=== PATIENT | female | born 1965 | race African-American/Black ===

== ENCOUNTER → 2020-05-17 15:28 | Outpatient (BNVA) | payer OTHER, SELFPAY | PROVIDERS: Visit Provider Physician Assistant ==

== ENCOUNTER → 2020-05-18 15:24 | Outpatient (BNVA) | payer OTHER, SELFPAY | PROVIDERS: Visit Provider Physician Assistant ==

== ENCOUNTER → 2020-05-19 08:00 | Outpatient (BNVA) | payer OTHER, SELFPAY | PROVIDERS: Visit Provider Surgery ==

== ENCOUNTER 2020-05-22 14:37 | Outpatient (REF) | payer OTHER, SELFPAY ==
--- NOTE | ~2020-05-22 | XR_ITS ---
EXAMINATION: XR CHEST CLINICAL INFORMATION: Morbid obesity. COMPARISON: None TECHNIQUE: 2 views of the chest were obtained. FINDINGS: No significant abnormality is noted involving the heart, lungs, mediastinum, bony thorax or soft tissues. XR/XR chest 2V IMPRESSION: Unremarkable chest examination.
--- NOTE | 2020-05-22 14:52 | ECG_ITS ---
Test Reason : MORBID OBESITY Blood Pressure : / mmHG Vent. Rate : 074 BPM Atrial Rate : 074 BPM P-R Int : 172 ms QRS Dur : 074 ms QT Int : 372 ms P-R-T Axes : 070 013 024 degrees QTc Int : 412 ms Normal sinus rhythm Normal ECG No previous ECGs available Referred By: Umer Tineo Electronically Signed By:KATHY ROYAL MD
[2020-05-22 15:17] LABS: MANUAL DIFF FLAG NO
[2020-05-22 15:21] LABS: Basophils Absolute Auto 0.1 X10*3/uL (0.0-0.2); Basophils Percent Auto 0.7 % (0-2); Eosinophils Absolute Auto 0.5 X10*3/uL (0.0-0.4); Hematocrit 38.8 % (37-47); Hemoglobin 12.2 g/dl (12.0-16.0); Imm Gran Abs Auto 0.06 X10*3/uL (0.00-0.03); Imm Gran Pct Auto 0.6 % (0.0-0.4); Lymphocytes Absolute Auto 1.8 X10*3/uL (1.2-4.9); Lymphocytes Percent Auto 18.9 % (20-40); Mean Corpuscular HGB Conc 31.4 g/dl (31.0-35.0); Mean Corpuscular Hemoglobin 25.3 pg (27.0-33.0); Mean Corpuscular Volume 80.5 fL (80-98); Mean Platelet Volume 11.3 fL (9.4-12.3); Monocytes Absolute Auto 0.8 X10*3/uL (0.1-1.2); Monocytes Percent Auto 8.2 % (2-11); Neutrophils Absolute Auto 6.3 X10*3/uL (2.0-8.3); Neutrophils Percent Auto 66.6 % (45-73); Platelet Count 211 X10*3/uL (160-400); Red Blood Count 4.82 X10*6/uL (4.20-5.50); Red Cell Distribution Width 13.7 % (11.0-16.0); White Blood Count 9.5 X10*3/uL (4.8-10.8)
[2020-05-22 15:30] LABS: Estimated Average Glucose 111 mg/dL; Hemoglobin A1C 114.3549 umol/L; Hemoglobin A1c % 5.5 %
[2020-05-22 15:49] LABS: Alanine Aminotransferase 21 U/L (0-31); Albumin Level 4.3 g/dL (3.5-5.0); Alkaline Phosphatase 98 U/L (39-117); Anion Gap 11 (12-20); Aspartate Amino Transferase 24 U/L (5-31); Bilirubin Total 1.3 mg/dL (0.0-1.0); Blood Urea Nitrogen 16 mg/dL (9-16); C Reactive Protein 0.38 mg/dL (< or = 0.50); Calcium 9.1 mg/dL (8.4-10.2); Carbon Dioxide 29 mmol/L (22-29); Chloride 103 mmol/L (96-108); Cholesterol 220 mg/dL; Estimated Glomerular Filt Rate > 60; Glucose Random 98 mg/dL (60-115); HDL Cholesterol 52 mg/dL; LDL Cholesterol Calculated 147 mg/dl; Potassium 4.1 mmol/L (3.3-5.1); Sodium 139 mmol/L (135-145); Total Protein 7.3 g/dL (6.5-8.0); Triglycerides 106 mg/dL
[2020-05-22 16:11] LABS: Ferritin 17 ng/mL (10-250); TSH reflex Free T4 0.88 uIU/mL (0.32-4.0); Vitamin D 25-OH Total 14.1 ng/mL (>30)
[2020-05-22 16:20] LABS: Folate 10.6 ng/mL (> or = 4.0); Vitamin B12 545 pg/mL (200-900)
[2020-05-23 16:16] LABS: Calcium (PTHI) 9.6 mg/dL (8.6-10.4); PTHI 160 pg/mL (14-64)
[2020-05-23 18:17] LABS: Insulin Level Total 9.4 uIU/mL
[2020-05-24 22:31] LABS: Zinc 68 mcg/dL (60-130)
[2020-05-25 16:27] LABS: Vitamin B1 17 nmol/L (8-30)
[2020-05-25 21:11] LABS: Vitamin A 48 mcg/dL (38-98)
== END 2020-05-22 14:38 | disposition home or self-care (01) ==
LOC: HO.LAB 14:37
PROVIDERS: Visit Provider Surgery
DX: E66.01 Morbid (severe) obesity due to excess calories (principal); I10 Essential (primary) hypertension; J45.909 Unspecified asthma, uncomplicated
CPT/HCPCS: 36415; 71046; 80053; 80061; 82306; 82607; 82728; 82746; 83036; 83525; 83970; 84425; 84443; 84590; 84630; 85025; 86140; 93005

== ENCOUNTER → 2020-06-14 08:13 | Outpatient (BNVA) | payer OTHER, SELFPAY | PROVIDERS: PCP Internal Medicine; Visit Provider Surgery ==

== ENCOUNTER → 2020-06-21 08:07 | Outpatient (BNVA) | payer OTHER, SELFPAY | PROVIDERS: PCP Internal Medicine; Visit Provider Dietitian, Registered | DX: E66.01 Morbid (severe) obesity due to excess calories (principal) | CPT/HCPCS: 97802 ==

== ENCOUNTER 2020-06-27 11:12 | Day surgery (SDC) | payer OTHER, SELFPAY ==
[2020-06-20 12:03] VITALS: BMI 47.2
--- NOTE | 2020-06-22 14:40 | P.CONAN_ITS ---
Documented by User: Franny Liz 06/22/20 14:41 HPI - Anesthesia Eval Consult details Narrative: 54yo F for Upper Endoscopy s/p gastric bypass PMFSH Active Problems Active Problems: All Active Problems (Updated 06/07/20 @ 13:45 by Stephanie Ross [facility]) Adjustment disorder, unspecified (Acute) Hypertension (Acute) Back pain (Acute) Asthma (Acute) Eczema (Acute) Multiple sclerosis (Acute) Morbid obesity (Acute) Past Medical History Medical History Asthma Eczema Morbid obesity Multiple sclerosis Surgical History Surgical History S/P gastric bypass Social History Social History Alcohol intake: never Smoking Status: Former smoker Advance Directives Information Provided: No Meds Allergies Allergy/AdvReac Type Severity Reaction Status Date / Time No Known Allergies Allergy Verified 05/19/20 14:24 Home Medications Medication Instructions Recorded Confirmed Last Taken Type albuterol sulfate 90 mcg/actuation 2 inh INHALATION Q4H PRN 05/18/20 06/20/20 Unknown History aerosol inhaler crisaborole 2 % topical ointment TOPICAL BID 05/18/20 Unknown History dupilumab 300 mg/2 mL subcutaneous 300 mg SUBCUT Q2W 05/18/20 06/20/20 Unknown History pen injector ergocalciferol (vitamin D2) 1,250 1,250 mcg PO QWEEK 05/18/20 06/20/20 Unknown History mcg (50,000 unit) capsule tacrolimus 0.1 % topical ointment TOPICAL BID 05/18/20 Unknown History triamcinolone acetonide 0.1 % appl TOPICAL 05/18/20 Unknown History topical cream triamcinolone acetonide 0.1 % TOPICAL 05/18/20 Unknown History topical ointment cetirizine 10 mg PO DAILY 06/20/20 06/20/20 Unknown History Exam Exam Date and Time: June 22, 2020 1440 Height,Weight and Vital Signs: Height 5 ft 1 in Weight 113.455 kg Narrative Narrative: EKG 05/2020 Vent. Rate : 074 BPM Atrial Rate : 074 BPM P-R Int : 172 ms QRS Dur : 074 ms QT Int : 372 ms P-R-T Axes : 070 013 024 degrees QTc Int : 412 ms Normal sinus rhythm Normal ECG No previous ECGs available Assessment and Plan Assessment Anesthesia Assessment: Chart Reviewed Documented by User: Ephraim Domínguez 06/27/20 12:32 REPLACED BY [facility] Past Medical History Medical History Asthma Eczema Morbid obesity Multiple sclerosis Surgical History Surgical History S/P gastric bypass Social History Social History Alcohol intake: never Smoking Status: Former smoker Advance Directives Information Provided: No Meds Allergies Allergy/AdvReac Type Severity Reaction Status Date / Time No Known Allergies Allergy Verified 05/19/20 14:24 Home Medications Medication Instructions Recorded Confirmed Last Taken Type albuterol sulfate 90 mcg/actuation 2 inh INHALATION Q4H PRN 05/18/20 06/20/20 Unknown History aerosol inhaler crisaborole 2 % topical ointment TOPICAL BID 05/18/20 Unknown History dupilumab 300 mg/2 mL subcutaneous 300 mg SUBCUT Q2W 05/18/20 06/20/20 Unknown History pen injector ergocalciferol (vitamin D2) 1,250 1,250 mcg PO QWEEK 05/18/20 06/20/20 Unknown History mcg (50,000 unit) capsule tacrolimus 0.1 % topical ointment TOPICAL BID 05/18/20 Unknown History triamcinolone acetonide 0.1 % appl TOPICAL 05/18/20 Unknown History topical cream triamcinolone acetonide 0.1 % TOPICAL 05/18/20 Unknown History topical ointment cetirizine 10 mg PO DAILY 06/20/20 06/20/20 Unknown History Exam Airway Mallampati Class: II TM Dist: >3cm Neck ROM: Full
--- NOTE | 2020-06-26 22:39 | MHC.SHP ---
Pre-Procedural Eval Section A The patient is an INPATIENT: No The History & Physical has been completed within 30 days and I have reviewed it.: Yes Section B Chief Complaint: reflux Details of Present Illness: GERD Relevant Family History (Specify if Yes): No Relevant Social History: None Present Medications: see Short Stay Collaborative assessment Medical History: No relevant PMH History of Previous Operations: Relevant previous surgery/procedure and date(s) (gastric bypass) Allergies: Allergies Allergy/AdvReac Type Severity Reaction Status Date / Time No Known Allergies Allergy Verified 05/19/20 14:24 Review of Systems Sugical H&P ROS: Negative: Constitution, Cardiovascular, Respiratory, Neurological, Psychiatric, Hem-Onc, Allergic/Immunologic, Gastrointestinal, Genitourinary, Musculoskeletal, Integumentary, Endocrine and Eyes/Ears/Nose/Throat Exam Surgical H&P Exam: Normal: HEENT, Normal: Heart, Normal: Lungs, Normal: Extremities, Normal: Abdomen, Normal: Skin and Normal: Neurological Plan Diagnosis/Plan: Unchanged (EGD to assess GERD and gastric bypass anatomy) I have reviewed the history and physical and performed a pertinent physical examination on my patient. No changes have occurred unless specified.
--- NOTE | 2020-06-27 12:11 | P.BOP_ITS ---
Brief Operative Note Date of Service: 06/27/20 Pre-op diagnosis: GERD Post-op diagnosis: same (1) Hiatal hernia, 2) large pouch with retained fundus, 3) candy cane Cesario limb) Procedure: PROCEDURE DATE: 06/27/2020 PREOPERATIVE DIAGNOSIS: GERD, s/p gastric bypass POSTOPERATIVE DIAGNOSIS: Same as above. 1) Redundant gastric pouch, 2) Candy cane gastro-jejunostomy, 3) 3cm hiatal hernia PROCEDURE: [id number] with biopsies Surgeon: Isaiah Tineo M.D.. Ph.D. Medical Program Specialist: None Anesthesia: IV sedation Estimated blood loss: Minimal FINDINGS AND PROCEDURE: OPERATIVE INDICATIONS: The patient is a 54 year old female known to me who underwent a laparoscopic gastric bypass elsewhere. The patient had inadequate weight loss so far and has GERD. Based on this information I recommended an upper endoscopy to evaluate the patient's symptoms. Risks and complications of the surgery were discussed with the patient in advance particularly the possibility of perforation or bleeding that may require surgical intervention. The patient understood the risks and was in agreement with the plan. PROCEDURE: After informed consent was obtained by the patient, the patient was transferred to the Operating Room and was placed in the supine position. After successful induction of IV sedation, a mouth block was placed and the patient was placed in the left lateral decubitus position. An upper endoscopy was performed next, the oropharynx and esophagus appeared within the normal limits. There was 1 3cm hiatal hernia (z-line at 35cm, GEJ at 38cm). The z-line was smooth. Two biopsies were obtained from the distal esophagus 2-3 cm proximal to the GE junction and two biopsies from the GE junction. The gastric pouch was entered, appeared to be large (z-line at 35cm and GJ anastomosis at 39cm). There was no gastritis and the gastrojejunostomy was patent. A biopsy was obtained from the gastric pouch. No significant bleeding was noted from any of the biopsy sites. There was no anastomotic ulcer. At that point the scope was advanced into the proximal small intestine (proximal Cesario limb) which appeared to be normal. The blind end of the Cesario limb was elongated about 5-6cm long ( candy cane anatomy). The Cesario limb and the pouch were decompressed and the scope was withdrawn from the patient's mouth. The patient was awaken and was transferred in stable condition to the Recovery Room for further care. I was present and performed all steps of the procedure. There were no residents to assist with this case. Isaiah Tineo M.D., Ph.D. Surgeon: Umer Tineo MD Anesthesia: MAC Estimated blood loss (mL): 0 IV fluids (mL): 500 Urine output (mL): 0 (No Haas to record) Pathology: other (1) GEJ x2, 2) distal esophagus x2, 3) gastric pouch x1) Condition: stable Disposition: PACU
[2020-06-27 12:15] VITALS: BP 129/82; PULSE 70; RESP 16; TEMP 36.4; O2SAT 97
[2020-06-27 12:27] LABS: COVID-19 Test Negative (Negative); IDNOW Serial# 9DD0AD1C
[2020-06-27] MEDS: Lactated Ringers 1,000 ML 100 ML IVCONT (12:41)
[2020-06-27 13:46] VITALS: BP 135/84; PULSE 79; RESP 14; TEMP 36.2; O2SAT 99
[2020-06-27 14:01] VITALS: BP 139/88; PULSE 72; RESP 18; O2SAT 99
== END 2020-06-27 14:24 ==
LOC: HO.SSS 11:12
PROVIDERS: PCP Internal Medicine; Visit Provider Surgery
PROC: 0DJ08ZZ Inspection of Upper Intestinal Tract, Via Natural or Artificial Opening Endoscopic (ICD-10-PCS; CPT 43235; principal; 2020-06-27 12:10)
DX: K21.9 Gastro-esophageal reflux disease without esophagitis (principal); K91.1 Postgastric surgery syndromes; Z98.84 Bariatric surgery status; E66.01 Morbid (severe) obesity due to excess calories; Z68.42 Body mass index [BMI] 45.0-49.9, adult; G35 Multiple sclerosis; J45.909 Unspecified asthma, uncomplicated; K44.9 Diaphragmatic hernia without obstruction or gangrene; Z79.899 Other long term (current) drug therapy; Z87.891 Personal history of nicotine dependence
CPT/HCPCS: 43239; 36415; 87635; 88305; 88342

== ENCOUNTER → 2020-07-10 08:23 | Outpatient (BNVA) | payer OTHER, SELFPAY | PROVIDERS: PCP Internal Medicine; Visit Provider Surgery ==

== ENCOUNTER 2020-07-19 10:02 | Outpatient (REF) | payer OTHER, SELFPAY ==
--- NOTE | ~2020-07-19 | FL_ITS ---
EXAMINATION: XR GI SERIES CLINICAL INFORMATION: Moderate/severe obesity due to excess calories. COMPARISON: None TECHNIQUE: Routine upper GI air contrast study was performed. FINDINGS: Following oral administration of thick barium and effervescent granules there is normal propagation of bolus from the oral cavity through the pharynx, esophagus into stomach without any evidence of obstruction, narrowing or stricture. There are previous surgical changes of gastric bypass with prompt passage of barium from the stomach into the duodenum without any evidence of obstruction. There is a large gastroesophageal reflux without hiatal hernia. FLUOROSCOPY TIME: 1.0 minutes DOSE AREA PRODUCT: 31.961 uGy-m2 (microgray-meter squared) FL/FL upper GI series IMPRESSION: Evidence of previous gastric bypass surgery with widely patent GE junction and gastrojejunal anastomosis. There is a large gastroesophageal reflux without hiatal hernia.
--- NOTE | ~2020-07-19 | US_ITS ---
EXAMINATION: US COMPLETE ABDOMEN WITH LIVER ELASTOGRAPHY CLINICAL INFORMATION: Obesity COMPARISON: None. TECHNIQUE: Real-time imaging of the abdominal viscera. Noninvasive ultrasound liver fibrosis assessment is performed using Delma ElastPQ point quantification shear wave elastography (pSWE) with a C5-2 MHz transducer. Multiple elastography samples are obtained. FINDINGS: PANCREAS: Normal. ABDOMINAL AORTA: The proximal, middle, and distal aortic segments are normal in caliber. INFERIOR VENA CAVA: Visualized portions are normal. LIVER: Normal. The liver demonstrates normal size, contour and echogenicity. No focal lesion or intrahepatic biliary duct dilatation. The right lobe measures 14.5 cm in length. The left lobe measures 9.2 cm in length. Portal flow is normal/hepatopedal Shear wave liver elastography median stiffness is 1.24 m/s (reference: normal median stiffness is 1.3 m/s or less). IQR/median stiffness to assess sampling precision is 0.2 (reference: good quality data set is IQR/median stiffness of 0.15 or less). GALLBLADDER: Normal. The gallbladder is physiologically distended without evidence of stones, sludge, polyps, wall thickening or pericholecystic fluid. COMMON BILE DUCT: Normal in caliber measuring 0.5 cm in diameter. RIGHT KIDNEY: Normal. No hydronephrosis. No renal calculi or focal parenchymal lesions. The kidney measures 11 cm in maximum dimension. LEFT KIDNEY: Normal. No hydronephrosis. No renal calculi or focal parenchymal lesions. The kidney measures 11.7 cm in maximum dimension. SPLEEN: Normal. The spleen measures 9.7 cm in maximum dimension. FREE FLUID: None. US/US abdomen comp w elastography IMPRESSION: 1. Impression: Unremarkable exam. 2. Liver elastography: Normal. Adequate sampling. REFERENCE: Society of Radiologists in Ultrasound Liver Stiffness Thresholds (2020): LIVER STIFFNESS THRESHOLDS: *Liver Stiffness equal or less than 1.3 m/s: High probability of being normal. *Liver Stiffness less than 1.7 m/s: In the absence of other known clinical signs, rules out compensated advanced chronic liver disease. *Liver Stiffness 1.7-2.1 m/s: Suggestive of compensated advanced chronic liver disease but need further test for confirmation. *Liver Stiffness over 2.1 m/s: Rules in compensated advanced chronic liver disease. *Liver Stiffness over 2.4 m/s: Suggestive of clinically significant portal hypertension. QUALITY OF DATA SET: *IQR/Median value equal or less than 0.15 implies a quality data set. *IQR/Median value over 0.15 implies a poor quality data set. SIGNIFICANT CHANGE FROM PRIOR EXAM: Significant change if liver stiffness measurement is 10% or greater from prior exam. OTHER CONSIDERATIONS: The stage of liver fibrosis may be overestimated in the setting of acute hepatitis, liver inflammation, elevated liver function tests, hepatic vascular congestion, obstructive cholestasis, non-fasting state, and infiltrative diseases such as amyloidosis and lymphoma. In some patients with NAFLD, the liver stiffness thresholds for compensated advanced chronic liver disease may be lower. In causes other than viral hepatitis and NAFLD, liver stiffness thresholds are not well established.
== END 2020-07-19 10:03 | disposition home or self-care (01) ==
LOC: HO.US 10:02
PROVIDERS: Visit Provider Surgery
DX: Z01.818 Encounter for other preprocedural examination (principal); E66.01 Morbid (severe) obesity due to excess calories; K21.9 Gastro-esophageal reflux disease without esophagitis; I10 Essential (primary) hypertension; J45.909 Unspecified asthma, uncomplicated
CPT/HCPCS: 74240; 76705; 76981

== ENCOUNTER → 2020-08-02 08:16 | Outpatient (BNVA) | payer OTHER, SELFPAY | PROVIDERS: PCP Internal Medicine; Visit Provider Surgery ==

== ENCOUNTER → 2020-08-21 07:41 | Outpatient (BNVA) | payer OTHER, SELFPAY | PROVIDERS: PCP Internal Medicine; Visit Provider Surgery ==

== ENCOUNTER → 2020-09-18 07:08 | Outpatient (BNVA) | payer OTHER, SELFPAY | PROVIDERS: PCP Internal Medicine; Visit Provider Surgery ==

== ENCOUNTER 2020-09-25 19:22 | Inpatient (IN) | payer OTHER, SELFPAY ==
[2020-09-13 12:31] VITALS: BMI 43.6
--- NOTE | 2020-09-15 15:12 | P.CONAN_ITS ---
Documented by User: Franny Chatmanney 09/25/20 08:24 HPI - Anesthesia Eval Consult details Narrative: 54yo F for Revision of Gastric Bypass to Gastric Sleeve s/p gastric bypass 2010 Recent MS diagnosis. Awaiting insurance auth for rx. PMFSH Active Problems Active Problems: All Active Problems (Updated 09/13/20 @ 12:27 by Lindsay Dorado) Back pain (Acute) Hypertension (Acute) Adjustment disorder, unspecified (Acute) Asthma (Acute) Eczema (Acute) Multiple sclerosis (Acute) Morbid obesity (Acute) Past Medical History Medical History Asthma Back pain Eczema Hypertension Morbid obesity Multiple sclerosis Surgical History Surgical History H/O tubal ligation History of esophagogastroduodenoscopy (EGD) Hx of dilation and curettage S/P gastric bypass Social History Social History Are you a primary child care nurse to a significant other at home: Yes (9 year old daughter) Do you presently have visiting nurse or other home services: No Alcohol intake: never Patient Tobacco Use Status: Former Tobacco user Quit Date: 2007 Tobacco use type: Cigarette Use of substances other than those prescribed or required for medical reasons: No Have you been hit, kicked, punched, or otherwise hurt by someone within the past year? If so, by whom?: No Are you DNR?: No Advance Directives: No Advance Directives Information Provided: No Advance Directives on File: No Recently lost weight without trying: No Patient : No FDLMP: 2009 Meds Allergies Allergy/AdvReac Type Severity Reaction Status Date / Time No Known Allergies Allergy Verified 09/26/20 06:14 Home Medications Medication Instructions Recorded Confirmed Last Taken Type albuterol sulfate 90 mcg/actuation 2 inh INHALATION Q4H PRN 05/18/20 06/20/20 Unknown History aerosol inhaler crisaborole 2 % topical ointment TOPICAL BID 05/18/20 Unknown History dupilumab 300 mg/2 mL subcutaneous 300 mg SUBCUT Q2W 05/18/20 06/20/20 Unknown History pen injector tacrolimus 0.1 % topical ointment TOPICAL BID 05/18/20 Unknown History triamcinolone acetonide 0.1 % appl TOPICAL 05/18/20 Unknown History topical cream triamcinolone acetonide 0.1 % TOPICAL 05/18/20 Unknown History topical ointment Exam Exam Date and Time: September 15, 2020 151 Height,Weight and Vital Signs: Height 5 ft 1 in Weight 104.78 kg Pertinent Lab Results Pertinent Lab Results: Lab Results 09/21/20 09/21/20 09/21/20 Range/Units 11:39 11:39 11:39 WBC 6.9 (4.8-10.8) X10*3/uL RBC 4.71 (4.20-5.50) X10*6/uL Hgb 11.7 L (12.0-16.0) g/dl Hct 36.8 L (37-47) % MCV 78.1 L (80-98) fL MCH 24.8 L (27.0-33.0) pg MCHC 31.8 (31.0-35.0) g/dl RDW 15.8 (11.0-16.0) % Plt Count 197 (160-400) X10*3/uL MPV 11.5 (9.4-12.3) fL Immature Gran % (Auto) 0.3 (0.0-0.4) % Neut % (Auto) 61.8 (45-73) % Lymph % (Auto) 22.7 (20-40) % [place] % (Auto) 8.4 (2-11) % Eos % (Auto) 5.8 H (0-4) % Baso % (Auto) 1.0 (0-2) % Lymph # (Auto) 1.6 (1.2-4.9) X10*3/uL [place] # (Auto) 0.6 (0.1-1.2) X10*3/uL Eos # (Auto) 0.4 (0.0-0.4) X10*3/uL Baso # (Auto) 0.1 (0.0-0.2) X10*3/uL Abs Immat Gran (auto) 0.02 (0.00-0.03) X10*3/uL Absolute Neuts (auto) 4.3 (2.0-8.3) X10*3/uL Absolute Nucleated RBC 0.000 (0.0-0.012) X10*3/uL Nucleated RBC % (auto) 0.0 (0.0-0.2) /100WBC PT 12.0 (9.9-13.0) SEC INR 1.1 (0.9-1.1) APTT 44.3 H (24.1-38.0) SEC Sodium 140 (135-145) mmol/L Potassium 4.4 (3.3-5.1) mmol/L Chloride 107 (96-108) mmol/L Carbon Dioxide 26 (22-29) mmol/L Anion Gap 11 L (12-20) BUN 15 (9-16) mg/dL Creatinine 0.79 (0.5-1.4) mg/dL Estim Creat Clear Calc 92.8 Estimated GFR > 60 Random Glucose 95 (60-115) mg/dL Estimat Average Glucose mg/dL Hemoglobin A1c % % Total Insulin uIU/mL Calcium 9.5 (8.4-10.2) mg/dL Total Bilirubin 1.0 (0.0-1.0) mg/dL AST 28 (5-31) U/L ALT 23 (0-31) U/L Alkaline Phosphatase 92 (39-117) U/L C-Reactive Protein 0.15 (< or = 0.50) mg/dL Total Protein 7.0 (6.5-8.0) g/dL Albumin 4.0 (3.5-5.0) g/dL Triglycerides 71 mg/dL Cholesterol 189 mg/dL LDL Cholesterol, Calc 128 mg/dl HDL Cholesterol 47 mg/dL TSH 0.49 (0.32-4.0) uIU/mL Blood Type Antibody Screen 09/21/20 09/21/20 09/21/20 Range/Units 11:39 11:39 11:39 WBC (4.8-10.8) X10*3/uL RBC (4.20-5.50) X10*6/uL Hgb (12.0-16.0) g/dl Hct (37-47) % MCV (80-98) fL MCH (27.0-33.0) pg MCHC (31.0-35.0) g/dl RDW (11.0-16.0) % Plt Count (160-400) X10*3/uL MPV (9.4-12.3) fL Immature Gran % (Auto) (0.0-0.4) % Neut % (Auto) (45-73) % Lymph % (Auto) (20-40) % [place] % (Auto) (2-11) % Eos % (Auto) (0-4) % Baso % (Auto) (0-2) % Lymph # (Auto) (1.2-4.9) X10*3/uL [place] # (Auto) (0.1-1.2) X10*3/uL Eos # (Auto) (0.0-0.4) X10*3/uL Baso # (Auto) (0.0-0.2) X10*3/uL Abs Immat Gran (auto) (0.00-0.03) X10*3/uL Absolute Neuts (auto) (2.0-8.3) X10*3/uL Absolute Nucleated RBC (0.0-0.012) X10*3/uL Nucleated RBC % (auto) (0.0-0.2) /100WBC PT (9.9-13.0) SEC INR (0.9-1.1) APTT (24.1-38.0) SEC Sodium (135-145) mmol/L Potassium (3.3-5.1) mmol/L Chloride (96-108) mmol/L Carbon Dioxide (22-29) mmol/L Anion Gap (12-20) BUN (9-16) mg/dL Creatinine (0.5-1.4) mg/dL Estim Creat Clear Calc Estimated GFR Random Glucose (60-115) mg/dL Estimat Average Glucose 108 mg/dL Hemoglobin A1c % 5.4 % Total Insulin 5.8 uIU/mL Calcium (8.4-10.2) mg/dL Total Bilirubin (0.0-1.0) mg/dL AST (5-31) U/L ALT (0-31) U/L Alkaline Phosphatase (39-117) U/L C-Reactive Protein (< or = 0.50) mg/dL Total Protein (6.5-8.0) g/dL Albumin (3.5-5.0) g/dL Triglycerides mg/dL Cholesterol mg/dL LDL Cholesterol, Calc mg/dl HDL Cholesterol mg/dL TSH (0.32-4.0) uIU/mL Blood Type O Positive Antibody Screen NEGATIVE Narrative Narrative: EKG 05/2020 Vent. Rate : 074 BPM Atrial Rate : 074 BPM P-R Int : 172 ms QRS Dur : 074 ms QT Int : 372 ms P-R-T Axes : 070 013 024 degrees QTc Int : 412 ms Normal sinus rhythm Normal ECG No previous ECGs available Assessment and Plan Assessment Anesthesia Assessment: Chart Reviewed Documented by User: Kasi Neumann 09/26/20 06:52 [facility] Past Medical History Medical History Asthma Back pain Eczema Hypertension Morbid obesity Multiple sclerosis Surgical History Surgical History H/O tubal ligation History of esophagogastroduodenoscopy (EGD) Hx of dilation and curettage S/P gastric bypass Social History Social History Are you a primary child care nurse to a significant other at home: Yes (9 year old daughter) Do you presently have visiting nurse or other home services: No Alcohol intake: never Patient Tobacco Use Status: Former Tobacco user Quit Date: 2007 Tobacco use type: Cigarette Use of substances other than those prescribed or required for medical reasons: No Have you been hit, kicked, punched, or otherwise hurt by someone within the past year? If so, by whom?: No Are you DNR?: No Advance Directives: No Advance Directives Information Provided: No Advance Directives on File: No Recently lost weight without trying: No Patient : No FDLMP: 2009 Meds Allergies Allergy/AdvReac Type Severity Reaction Status Date / Time No Known Allergies Allergy Verified 09/26/20 06:14 Home Medications Medication Instructions Recorded Confirmed Last Taken Type albuterol sulfate 90 mcg/actuation 2 inh INHALATION Q4H PRN 05/18/20 06/20/20 U nknown History aerosol inhaler crisaborole 2 % topical ointment TOPICAL BID 05/18/20 Unknown History dupilumab 300 mg/2 mL subcutaneous 300 mg SUBCUT Q2W 05/18/20 06/20/20 Unknown History pen injector tacrolimus 0.1 % topical ointment TOPICAL BID 05/18/20 Unknown History triamcinolone acetonide 0.1 % appl TOPICAL 05/18/20 Unknown History topical cream triamcinolone acetonide 0.1 % TOPICAL 05/18/20 Unknown History topical ointment Exam Airway Mallampati Class: III TM Dist: >3cm Neck ROM: Full Loose/Missing/Broken Teeth: No Heart: [id number] Lungs: cta b/l Assessment and Plan Assessment Anesthesia Assessment: Anesthesia Plan Discussed, PAT Visit and Chart Reviewed Final Anesthetic Review NPO: Yes ASA Class: III Final Preanesthetic Review: No Changes in Pt Med Stat, Meds/Allgs Chart Reviewed, Consent Obtained/Reviewed and Anes Risks/Benef Reviewed Patient Risk: Intermediate Procedure Risk: Low Assessment/Block/Sedation in SS: Assess/Block/Sedation-SS Anesthetic Plan Anesthetic Plan: GA and Agree w/ Assess. and Plan Disposition: Standard PACU
[2020-09-21 12:01] LABS: MANUAL DIFF FLAG NO
[2020-09-21 12:10] LABS: Basophils Absolute Auto 0.1 X10*3/uL (0.0-0.2); Eosinophils Absolute Auto 0.4 X10*3/uL (0.0-0.4); Eosinophils Percent Auto 5.8 % (0-4); Hematocrit 36.8 % (37-47); Hemoglobin 11.7 g/dl (12.0-16.0); Imm Gran Abs Auto 0.02 X10*3/uL (0.00-0.03); Imm Gran Pct Auto 0.3 % (0.0-0.4); Lymphocytes Absolute Auto 1.6 X10*3/uL (1.2-4.9); Lymphocytes Percent Auto 22.7 % (20-40); Mean Corpuscular HGB Conc 31.8 g/dl (31.0-35.0); Mean Corpuscular Hemoglobin 24.8 pg (27.0-33.0); Mean Corpuscular Volume 78.1 fL (80-98); Mean Platelet Volume 11.5 fL (9.4-12.3); Monocytes Absolute Auto 0.6 X10*3/uL (0.1-1.2); Monocytes Percent Auto 8.4 % (2-11); Neutrophils Absolute Auto 4.3 X10*3/uL (2.0-8.3); Neutrophils Percent Auto 61.8 % (45-73); Platelet Count 197 X10*3/uL (160-400); Red Blood Count 4.71 X10*6/uL (4.20-5.50); Red Cell Distribution Width 15.8 % (11.0-16.0); White Blood Count 6.9 X10*3/uL (4.8-10.8)
[2020-09-21 12:13] LABS: INTERNATIONAL NORM RATIO 1.1 (0.9-1.1)
[2020-09-21 12:15] LABS: Partial Thromboplastin Time 44.3 SEC (24.1-38.0)
[2020-09-21 12:17] LABS: Estimated Average Glucose 108 mg/dL; Hemoglobin A1c % 5.4 %
[2020-09-21 12:39] LABS: Alanine Aminotransferase 23 U/L (0-31); Alkaline Phosphatase 92 U/L (39-117); Anion Gap 11 (12-20); Aspartate Amino Transferase 28 U/L (5-31); Blood Urea Nitrogen 15 mg/dL (9-16); C Reactive Protein 0.15 mg/dL (< or = 0.50); Calcium 9.5 mg/dL (8.4-10.2); Carbon Dioxide 26 mmol/L (22-29); Chloride 107 mmol/L (96-108); Cholesterol 189 mg/dL; Creatinine Clr Calc Pharmacy 92.8; Estimated Glomerular Filt Rate > 60; Glucose Random 95 mg/dL (60-115); HDL Cholesterol 47 mg/dL; LDL Cholesterol Calculated 128 mg/dl; Potassium 4.4 mmol/L (3.3-5.1); Sodium 140 mmol/L (135-145); Triglycerides 71 mg/dL
[2020-09-21 13:00] LABS: TSH reflex Free T4 0.49 uIU/mL (0.32-4.0)
[2020-09-22 20:36] LABS: Insulin Level Total 5.8 uIU/mL
--- NOTE | 2020-09-25 19:19 | MHC.SHP ---
Pre-Procedural Eval Section A Date of Service: 09/25/20 The patient is an INPATIENT: Yes The History & Physical has been completed within 30 days and I have reviewed it.: Yes Section B Chief Complaint: Morbid Severe Obesity Details of Present Illness: Obesity Relevant Family History (Specify if Yes): No Relevant Social History: None Present Medications: see Short Stay Collaborative assessment Medical History: No relevant PMH History of Previous Operations: Relevant previous surgery/procedure and date(s) (Lap gastric bypass) Allergies: Allergies Allergy/AdvReac Type Severity Reaction Status Date / Time No Known Allergies Allergy Verified 09/18/20 12:08 Review of Systems Sugical H&P ROS: Negative: Constitution, Cardiovascular, Respiratory, Neurological, Psychiatric, Hem-Onc, Allergic/Immunologic, Gastrointestinal, Genitourinary, Musculoskeletal, Integumentary, Endocrine and Eyes/Ears/Nose/Throat Exam Surgical H&P Exam: Normal: HEENT, Normal: Heart, Normal: Lungs, Normal: Extremities, Normal: Abdomen, Normal: Skin and Normal: Neurological Plan Diagnosis/Plan: Unchanged I have reviewed the history and physical and performed a pertinent physical examination on my patient. No changes have occurred unless specified.
[2020-09-26] VITALS (14 sets, daily range): BP systolic 122–143; BP diastolic 60–81; PULSE 76–89; RESP 14–20; TEMP 36.1–36.6; O2SAT 98–100
[2020-09-26] MEDS: Lactated Ringers 1,000 ML 100 ML IVCONT (06:58)
[2020-09-26 07:01] LABS: COVID-19 Test Negative (Negative); IDNOW Serial# 08D9AD1C
--- NOTE | 2020-09-26 07:28 | PC.NURSE ---
consent reviewed with Kelsy Gordon acceptable date and time frame
--- NOTE | 2020-09-26 09:57 | P.DS_ITS ---
DS: Providers Provider Date of Service: 09/27/20 Date of admission: 09/25/20 19:22 Primary care physician: Richard Gurrola MD DS: Medications Discharge Medications Home Medications: Home Medications Medication Instructions Recorded Confirmed albuterol sulfate 90 mcg/actuation 2 inh INHALATION Q4H PRN 05/18/20 06/20/20 aerosol inhaler crisaborole 2 % topical ointment TOPICAL BID 05/18/20 dupilumab 300 mg/2 mL subcutaneous 300 mg SUBCUT Q2W 05/18/20 06/20/20 pen injector tacrolimus 0.1 % topical ointment TOPICAL BID 05/18/20 triamcinolone acetonide 0.1 % appl TOPICAL 05/18/20 topical cream triamcinolone acetonide 0.1 % TOPICAL 05/18/20 topical ointment Previous Rx's Medication Instructions Recorded ondansetron HCl 4 mg tablet 4 mg PO Q12H #20 tab 09/18/20 pantoprazole 40 mg tablet,delayed 40 mg PO DAILY #30 tab 09/18/20 release polyethylene glycol 3350 17 gram 17 g PO DAILY #14 ea 09/18/20 oral powder packet sucralfate 100 mg/mL oral 10 ml PO BID #400 ml 09/18/20 suspension ondansetron HCl 4 mg tablet 4 mg PO DAILY #14 tab 09/21/20 DS: Summary Time Spent with Patient Time attestation: ADMITTING DIAGNOSIS: morbid obesity, s/p gastric bypass, diaphragmatic hernia, asthma, multiple sclerosis DISCHARGE DIAGNOSIS: same, s/p laparoscopic revision of gastric bypass - sleeve gastrectomy and repair diaphragmatic hernia PAST SURGICAL HISTORY: gastric bypass, tubal ligation PROCEDURE: upper endoscopy, laparoscopic sleeve gastrectomy and repair of diaphragmatic hernia hernia DISCHARGE SUMMARY: History of Present Illness: The patient is a 54 year-old woman with a BMI of 48.2 kg/m2 and associated co- morbidities as described above. The patient had extensive work-up,lost 24.8 lbs preoperatively and was electively scheduled for laparoscopic, possible open sleeve gastrectomy and gastropexy. Risks and complications of the surgery were discussed with the patient in advance, particularly the possibility of , pulmonary embolism, anastomotic leak, bleeding, bowel injury, GERD, cardiac, renal or pulmonary complications. The patient understood all the risks and was in agreement with the surgical plan. Hospital Course: The patient underwent an uneventful laparoscopic sleeve gastrectomy (revision of gastric bypass) and repair of diaphragmatic hernia on the day of admission. Postoperatively, the patient was transferred to the surgical floor. The patient was on IV Acetaminophen and IV dilaudid for pain control. Patient was started on bariatric phase 1 diet POD #0. On postoperative day one, the patient was feeling well without nausea, vomiting, fevers, or tachycardia. The patient had some mild incisional pain. The abdomen was soft. On the morning of postoperative day one, the patient was continued on 1 ounce of water or ice every half hour. During the first day, the patient did fairly well, having some incisional pain, but able to ambulate adequately and to tolerate liquids well. Since the patient is doing well, we decided that the patient was ready to be discharged. The patient was given instructions to follow-up with me next week and to call my office for any fever over 101, persistent abdominal pain, nausea, vomiting, GERD, symptoms of DVT such as calf tenderness, or leg swelling, or pulmonary embolism such as chest pain or shortness of breath. The patient was also instructed to drink 40-60 ounces of liquids per day using the 1-ounce cups. The patient was given prescription for Tylenol for pain, Zofran prn for nausea, and pantoprazole and carafate. The patient was encouraged to ambulate and use the incentive spirometer. The patient was allowed to shower, but no baths, and encouraged to stay active at home. All of these instructions were given to the patient personally. All questions were answered and the patient understood all instructions, the instructions were also given to the patient in print. Total time spent providing and/or coordinating discharge services: 15 Discharge coordination time: Less than 30 minutes Quality: Stroke Does the patient have a stroke diagnosis?: No Physical Exam Vital Signs: Vital Signs: Last Vital Signs Temp 96.9 F 09/26/20 06:46 Pulse 77 09/26/20 06:46 Resp 20 09/26/20 06:46 BP 135/78 09/26/20 06:46 Pulse Ox 99 09/26/20 06:46 Body Mass Index 43.6 DS: Data Data Completed and Pending Pending studies at discharge: Pending at discharge 09/26/20 09:23 Surgical [PTH] Routine Labs on day of discharge: Laboratory Results - last 24 hr 09/26/20 06:21 COVID-19 (EREN) Negative COVID-19 Clin Com See Note Discharge Plan Discharge Anticipated Discharge Date/Time: 09/27/20 10:53 Patient Disposition: Home, Self-Care Discharge Diagnosis: revision of gastric bypass Referrals: Richard Gurrola MD [Primary Care Provider] - 1 Week Discharge Medications: Continued ondansetron HCl [Zofran] 4 mg tablet 4 mg PO DAILY Qty: 14 RF: 0 tacrolimus 0.1 % ointment topical BID RF: 0 triamcinolone acetonide 0.1 % cream topical RF: 0 crisaborole 2 % ointment topical BID RF: 0 albuterol sulfate 90 mcg/actuation HFA aerosol inhaler 2 inh inhalation Q4H PRN (Reason: Wheezing) RF: 0 pantoprazole 40 mg tablet,delayed release (DR/EC) 40 mg PO DAILY Qty: 30 RF: 2 sucralfate 100 mg/mL suspension 10 ml PO BID Qty: 400 RF: 2 Held dupilumab 300 mg/2 mL pen injector 300 mg subcut Q2W RF: 0 Hold Instructions: Discuss when to restart with Dr Tineo Discontinued triamcinolone acetonide 0.1 % ointment topical RF: 0 ondansetron HCl [Zofran] 4 mg tablet 4 mg PO Q12H Qty: 20 RF: 0 polyethylene glycol 3350 [Miralax] 17 gram powder in packet 17 g PO DAILY Qty: 14 RF: 0 Discharge Orders: Discharge Order (Routine); Ordered 09/27/20 Ordered By: Umer Tineo Diet: other Activity on Discharge: No heavy lifting Stand Alone Forms: Patient Portal Discharge page Care Plan Goals: weight loss Health Concerns: morbid obesity Plan of Treatment: No tub baths, sex or returning to work until discussed at first post op appointment. No exercise, alcohol, tobacco or illegal drug use. Continue to use incentive spirometer hourly while awake. Walk in home for 5- 10 minutes every 2 hours during the first week. Continue phase 1 diet today and start phase 2 diet tomorrow morning. Follow all instructions in the bariatric handbook and call with any questions. The patient's medical history has been reviewed and they are considered low risk for post op DVT and therefore DVT prophylaxis is not considered necessary. Travel after surgery was reviewed. The patient has not disclosed any travel plans during the first 30 days after surgery and they have been advised that within the first 30 days after surgery any bus, plane, train or car travel over 2 hours in duration is contraindicated due to the possibility of developing blood clots from immobility. Any travel, needs to include periods of ambulation of 10 minutes in duration every 2 hours. The patient was instructed to discuss any plans for travel during this period with their bariatric surgeon. Assessment: stable, POD # 1 s/p revision of gastric bypass and repair of diaphragmatic hernia
--- NOTE | 2020-09-26 10:01 | P.BOP_ITS ---
Brief Operative Note Date of Service: 09/26/20 Pre-op diagnosis: Morbid obesity and comorbidities (see below) Post-op diagnosis: same (& diaphragmatic hernia and adhesions) Procedure: INITIAL PATIENT BMI ON PRESENTATION AT OUR OFFICE: 48.3 kg/m2 LAST BMI BEFORE SURGERY: 43 kg/m2 COMORBIDITIES: Asthma, GERD, multiple sclerosis, eczema The patient participated in an intensive weekly lifestyle intervention and exercise program during which the patient has lost between the initial office visit and the last preoperative visit 26.8 lbs, or 10.1% of initial actual body weight. The patient met the BMI-criteria for bariatric surgery based on the BMI on initial presentation. The patient should not be penalized for achieving such weight loss because it is not sustainable long-term without surgical intervention and it was achieved in preparation for bariatric surgery under my direction and based on my published research ([email or web address] and [email or web address]) that a 10% preoperative weight loss improves long-term weight loss after surgery and reduces perioperative complications. Insurance carriers such as [facility] have endorsed my recommendations and have included in their policies criteria to include a 10% preoperative weight loss requirement. PROCEDURE: Esophago-gastroscopy, laparoscopic repair of incarcerated diaphragmatic hernia, laparoscopic lysis of adhesions, laparoscopic sleeve gastrectomy and laparoscopic gastropexy INDICATIONS: This is a 54 year-old female who was electively scheduled for laparoscopic, possibly open sleeve gastrectomy of the gastric pouch. The risks and complications of the procedure were discussed with the patient in advance, particularly the possibility of ; pulmonary embolism; staple line leak; bleeding; GERD; cardiac, pulmonary, or renal complications; as well as long-term problems such as insufficient weight loss, vitamin deficiency, strictures, or ulcers. The patient understood all the risks, and was in agreement to proceed with surgery. DESCRIPTION OF PROCEDURE: After informed consent was obtained from the patient, the patient was given preoperative antibiotics, and was transferred to the operating room. After successful induction of general anesthesia, a Haas catheter and pneumatic compressive devices were placed on both lower extremities. An upper endoscopy was performed next. The oropharynx and esophagus appeared to be within normal limits. There was a diaphragmatic hernia present of moderate size consistent with the findings of the preoperative upper GI. The stomach was entered. Then after all fluid and air were suctioned and the stomach was fully decompressed, the scope was withdrawn and secured in the mid esophagus. The patient was then prepped and draped in the usual sterile manner, and abdominal access was established at the right upper quadrant with the Cesario technique. A 12 mm blunt port was inserted, and the abdomen was insufflated with CO2 to a pressure of 15 mmHg. Under direct visualization, additional ports were placed, specifically two 5 mm Versi-step ports to the left upper quadrant, and a 5 mm Versi-Step port to the right upper quadrant. 1% lidocaine plan was used to infiltrate all port sites as well as all fascia defects. Following that, the patient was placed in a steep reverse Trendelenburg position. An additional 5 mm port was placed to the right flank for the Mediflex retractor that was used to retract the left lobe of the liver. There were adhesions between the lesser omentum and the undersurface of the left lobe of the liver and the caudate lobe. Those were lysed completely with the Thunderbeat. The liver retractor was re-positioned to expose the hiatus. The gastro-esophageal fat pad was opened with the ultrasonic device (Thun derbeat, Olympus) and the anterior esophagus and hiatus were exposed. The angle of His was opened with the ultrasonic device the fundus of the stomach from any diaphragmatic and splenic attachments. I then any omental adhesions to the Cesario limb using the Thunderbeat. I then continued dividing adhesions between the gastric pouch and the gastric remnant. The splenic artery was identified and preserved. The gastric pouch was adherent to the sleeve but I was able to separate it without any bleeding. The gastric pouch was further mobilized posteriorly and there were posterior short gastric vessels that were present at the pouch side suggesting a larger size pouch. Once these posterior attachments were completely divided the pouch was assessed and it was clearly significantly redundant. Adhesiolysis took approximately 60 min to complete. There was an obvious significant-sized hiatal hernia. I continued dissecting along the hiatus toward the left otoniel and the angle of His. I fully mobilized the fat pad that was incarcerated in the hernia. I then continued by dissecting even further into the posterior retro-esophageal space all the way to the angle of His. I continued to mobilize the esophagus into the mediastinum circumferentially. Both vagal nerves were seen and preserved. At that point, I was able to have at least 3 to 5 cm of esophagus into the abdomen. After I completely mobilized the esophagus from both the left and right otoniel and I had a good mobilization of the esophagus circumferentially, I closed the hernia defect with three interrupted #0 Surgidac sutures using the Endo Stitch device, two of which were placed posterior and one anterior to the esophagus. The stomach was then divided transversely with one Endo SANDOVAL-45 and pne SANDOVAL-60 articulating purple loads. Every effort was made that the gastric sleeve had a tubular shape and an even caliber throughout. Once the sleeve resection was completed, the staple line of the gastric sleeve was reinforced with Hemoclips. The resected stomach was retrieved without difficulty from the Cesario port. An upper endoscopy was performed. There was no narrowing at the GE junction. The scope was easily advanced all the way to the GJ anastomosis which was clearly visualized. There was no narrowing anywhere and the pouch's caliber was even throughout. There was no ischemia anywhere or bleeding. The staple line was inspected and there was no evidence of ischemia, bleeding or dehiscence. At that point the gastroscope was withdrawn from the patient?s mouth while we were decompressing the bowel and the stomach from any remaining air. I looked into the lesser sac to see how the sleeve was situating and it was situating well. There was no bleeding from the staple line, spleen, or short gastric vessels. The Mediflex retractor was removed, and the undersurface of the liver was inspected and there was no bleeding. The patient was placed in supine position. I closed the fascial defect of the 12 mm port site with a figure of eight #1 Polysorb suture. Then 100 cc 0.25 % Marcaine plain with 10 mg of Dexamethasone were used to infiltrate the fascial closure as well as all skin incisions. At this point, the abdomen was deflated, all ports were removed under direct vision, and no bleeding was noted from any of the port sites. The skin incisions were irrigated with saline and were closed with 4-0 absorbable monofilament sutures. Steri-Strips and OpSites were used to cover all incisions. The patient was extubated and was transferred in stable condition to the recovery room for further care. I was present and performed all olson parts of the procedure. Ms. Parmar was the first breaker feeder. There were no residents to assist with this case. Isaiah Tineo MD, PhD, FACS Surgeon: Umer Tineo MD Anesthesia: GETA, local and other (TAP block) Was an Head Of Conservation used for this Procedure?: No Head Of Conservation: Desiree Parmar Estimated blood loss (mL): 5 IV fluids (mL): 3,000 Urine output (mL): 400 Pathology: other (Stomach) Condition: stable Disposition: PACU
[2020-09-26] MEDS: Famotidine/PF 20 MG/2 ML VIAL IVPUSH ×2 (10:05→20:37)
[2020-09-26 10:40] LABS: Hematocrit 35.5 % (37-47); Hemoglobin 11.4 g/dl (12.0-16.0)
[2020-09-26] MEDS: HYDROmorphone HCl 0.5 MG/0.5 ML SYRINGE IVPUSH (10:40)
--- NOTE | 2020-09-26 10:46 | PM.PNGS ---
Subjective Subjective Date of Service: 09/27/20 Interval history: Patient has mild incisional pain but was able to ambulate and use the incentive spirometer. She is tolerating phase 1 bariatric diet. Physical Exam Vital Signs: Vital Signs: Last Vital Signs Temp 97.2 F 09/26/20 09:50 Pulse 83 09/26/20 10:35 Resp 18 09/26/20 10:40 BP 139/76 09/26/20 10:35 Pulse Ox 100 09/26/20 10:35 Body Mass Index 43.6 GI: Inspection: Yes normal to inspection, Yes incision (clean, dry and intact) and Yes obesity Extrem: Right lower extremity: normal to inspection (no calf tenderness) Left lower extremity: normal to inspection (no calf tenderness) Progress Note: A&P Assessment and plan (1) Morbid obesity: Status: Acute (2) Diaphragmatic hernia: Status: Acute (3) Status post repair of paraesophageal diaphragmatic hernia: Status: Acute (4) S/P laparoscopic sleeve gastrectomy: Status: Acute Assessment and Plan: s/p sleeve gastrectomy and diaphragmatic hernia repair. Doing well Check am labs. If OK, will discharge home (5) Asthma: Status: Acute (6) Eczema: Status: Acute (7) Multiple sclerosis: Status: Acute (8) GERD (gastroesophageal reflux disease): Status: Acute Fall Risk Details Current Medications: Current Medications Generic Name Dose Route Start Last Admin Trade Name Freq PRN Reason Stop Dose Admin Albuterol Sulfate 2.5 mg 09/26/20 06:15 Albuterol Sulfate (0.083%) 2.5 Mg/3 Ml Vial.Neb INHALE ONCE PRN Shortness of Breath/Wheezing Famotidine 20 mg 09/26/20 10:00 09/26/20 10:05 Famotidine/Pf 20 Mg/2 Ml Vial IVPUSH 20 mg BID CASSIDY Administration Fentanyl 50 mcg 09/26/20 06:52 Fentanyl Citrate/Pf 100 Mcg/2 Ml Vial IVPUSH Q5M PRN Pain, Moderate (Pain Scale 4-6 Hydromorphone HCl 0.5 mg 09/26/20 06:52 09/26/20 10:40 Hydromorphone Hcl 0.5 Mg/0.5 Ml Syringe IVPUSH 0.5 mg Q5M PRN Administration Pain, Severe (Pain Scale 7-10) Lactated Ringer's 1,000 mls @ 100 mls/hr 09/26/20 06:15 09/26/20 06:58 Lr IVCONT 100 mls/hr .Q10H CASSIDY Administration Promethazine HCl 12.5 mg/ 50.5 mls @ 202 mls/hr 09/26/20 06:52 Sodium Chloride IV ONCE PRN Nausea and Vomiting Ondansetron HCl 4 mg 09/26/20 06:52 Ondansetron Hcl 4 Mg/2 Ml Vial IVPUSH ONCE PRN Nausea and Vomiting Oxycodone HCl 10 mg 09/26/20 06:52 Oxycodone Hcl Immed Release 5 Mg Tablet PO ONCE PRN Pain, Severe (Pain Scale 7-10) Time Spent With Patient Time: Total time spent is greater than 50% in coordination of care (as documented) at patient's floor/unit and/or counseling patient: Time with patient: less than 15 minutes Procedures Date of Service Date of Service: 09/27/20 Quality Stroke Does the patient have a stroke diagnosis?: No VTE Prior VTE?: No VTE Risk Level:: Surgical - moderate VTE Device Contraindication: N/A - Device Ordered VTE Drug Contraindication: Treatment Not Indicated
[2020-09-26 10:56] LABS: Anion Gap 14 (12-20); Blood Urea Nitrogen 11 mg/dL (9-16); Carbon Dioxide 23 mmol/L (22-29); Chloride 106 mmol/L (96-108); Estimated Glomerular Filt Rate > 60; Glucose Random 114 mg/dL (60-115); Potassium 4.7 mmol/L (3.3-5.1); Sodium 138 mmol/L (135-145)
[2020-09-26] MEDS: Lactated Ringers 1,000 ML 125 ML IVCONT (11:16)
--- NOTE | 2020-09-26 16:21 | MHC.CM.PN ---
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 she confirmed she has health care proxy naming her i requested a copy be brought in or mailed to [facility] medical records after she is discharged . she is aware s/p revision of gastric bypass 2010 to gastgric sleeve on 09/26/20 she also is aware that she will be discharged tomorrow if medically-surgically stable. discharged plan home no servcies pcp follow up post hospital discharge bariatric surgical follow up per discharge instructions transportation family will need return to work note
[2020-09-26] MEDS: 0.9 % Sodium Chloride Flush 3 ML SYRINGE IVFLUSH (20:37)
[2020-09-26] MEDS: ondansetron HCL 4 MG/2 ML VIAL IVPUSH (20:37)
[2020-09-27] VITALS: BP 158/86; PULSE 87; RESP 16; TEMP 36.4; O2SAT 96
[2020-09-27] MEDS: Lactated Ringers 1,000 ML 125 ML IVCONT (00:45)
[2020-09-27 04:00] VITALS: BP 130/74; PULSE 83; RESP 16; TEMP 36.4; O2SAT 98
[2020-09-27] MEDS: ondansetron HCL 4 MG/2 ML VIAL IVPUSH (04:32)
[2020-09-27 05:53] VITALS: O2SAT 98
[2020-09-27 06:19] LABS: MANUAL DIFF FLAG NO
[2020-09-27 06:28] LABS: Basophils Percent Auto 0.1 % (0-2); Hematocrit 35.9 % (37-47); Hemoglobin 11.6 g/dl (12.0-16.0); Imm Gran Abs Auto 0.04 X10*3/uL (0.00-0.03); Imm Gran Pct Auto 0.5 % (0.0-0.4); Lymphocytes Absolute Auto 1.1 X10*3/uL (1.2-4.9); Lymphocytes Percent Auto 15.5 % (20-40); Mean Corpuscular HGB Conc 32.3 g/dl (31.0-35.0); Mean Corpuscular Hemoglobin 24.8 pg (27.0-33.0); Mean Corpuscular Volume 76.9 fL (80-98); Mean Platelet Volume 11.2 fL (9.4-12.3); Monocytes Absolute Auto 0.7 X10*3/uL (0.1-1.2); Monocytes Percent Auto 9.9 % (2-11); Neutrophils Absolute Auto 5.4 X10*3/uL (2.0-8.3); Platelet Count 204 X10*3/uL (160-400); Red Blood Count 4.67 X10*6/uL (4.20-5.50); Red Cell Distribution Width 15.5 % (11.0-16.0); White Blood Count 7.4 X10*3/uL (4.8-10.8)
[2020-09-27 06:56] LABS: Anion Gap 15 (12-20); Blood Urea Nitrogen 7 mg/dL (9-16); Calcium 9.4 mg/dL (8.4-10.2); Carbon Dioxide 24 mmol/L (22-29); Chloride 105 mmol/L (96-108); Creatinine Clr Calc Pharmacy 100.4; Estimated Glomerular Filt Rate > 60; Glucose Random 92 mg/dL (60-115); Potassium 4.6 mmol/L (3.3-5.1); Sodium 139 mmol/L (135-145)
[2020-09-27] MEDS: Famotidine/PF 20 MG/2 ML VIAL IVPUSH (07:05)
[2020-09-27] MEDS: 0.9 % Sodium Chloride Flush 3 ML SYRINGE IVFLUSH (07:08)
[2020-09-27 07:35] VITALS: BP 155/80; PULSE 76; RESP 17; TEMP 36.5; O2SAT 99
--- NOTE | 2020-09-27 09:38 | MHC.CM.PN ---
NURSECASE DIRECTOR OF CREATIVE SERVICES NOTE ELECTRONIC MEDICAL RECORD REVIEWED ALONG WITH CASE DISCUSSED WITH STAFF NURSE , PATIENT IS AWARE THAT SHE WILL BE DISCHARGED HOME [facility] . DISCHARGE PLAN HOME WITH FAMILY NO SERVICESW PCP PATIENT TO CALL FOR POST [facility] DISCHARGE FOLLOW UP BARIIATRIC SURGICAL FOLLOW UP PER DISCHARGE INSTRUCTIONS TRANSPORTATION PATIENTS FAMILY
--- NOTE | 2020-09-27 16:04 | HO.POSTANES ---
Post Anesthesia Evaluation Post Anesthesia Evaluation Vital Signs: Vital Signs Temp Pulse Resp BP Pulse Ox 09/27/20 07:35 97.7 F 76 17 155/80 H 99 09/27/20 05:53 98 Anesthesia: General Endotracheal-GETA Mental Status: Awake Pain Control: Satisfactory Nausea/Vomiting: None Hydration: Adequate Anesthesia-Related Issues: No Anes. Related Issues
== END 2020-09-27 10:32 | disposition home or self-care (01) | DRG 403 ==
LOC: HO.SSSA 09-26 09:57 → HO.S3 09-26 10:34
PROVIDERS: Physician Assistant; Admitting Provider Surgery; PCP Internal Medicine; Visit Provider Surgery
PROC: 0DQ64ZZ Repair Stomach, Percutaneous Endoscopic Approach (ICD-10-PCS; CPT 43771; principal; 2020-09-26 07:30)
DX: E66.01 Morbid (severe) obesity due to excess calories (principal); G35 Multiple sclerosis; J45.909 Unspecified asthma, uncomplicated; K44.0 Diaphragmatic hernia with obstruction, without gangrene; K66.0 Peritoneal adhesions (postprocedural) (postinfection); L30.9 Dermatitis, unspecified; K21.9 Gastro-esophageal reflux disease without esophagitis; Z20.822 Contact with and (suspected) exposure to COVID-19; Z68.41 Body mass index [BMI] 40.0-44.9, adult; Z79.899 Other long term (current) drug therapy
CPT/HCPCS: 36415; 80048; 80053; 80061; 83036; 83525; 84443; 85014; 85018; 85025; 85610; 85730; 86140; 86850; 86900; 86901; 87635; 88307; 88342; 99024; J0131; J0690; J1100; J1170; J2250; J2405; J3010

== ENCOUNTER → 2020-10-02 08:37 | Outpatient (BNVA) | payer OTHER, SELFPAY | PROVIDERS: PCP Internal Medicine; Referring Provider Internal Medicine; Visit Provider Surgery | DX: E66.01 Morbid (severe) obesity due to excess calories (principal); Z67.41 Type O blood, Rh negative; Z71.3 Dietary counseling and surveillance; Z98.84 Bariatric surgery status | CPT/HCPCS: 99212 ==